=== PATIENT | female | born 1965 | race African-American/Black ===

== ENCOUNTER 2018-02-15 20:32 | Emergency (ER) | payer BC, MEDICARE, SELFPAY ==
[2018-02-15] MEDS ORDERED: Ketorolac Tromethamine 30 MG/ML VIAL ONE (21:51)
[2018-02-15] MEDS ORDERED: Dexamethasone 4 mg/ml Vial ONE (21:51)
--- NOTE | 2018-02-15 21:59 | RAD ---
TWO VIEW CHEST SERIES: 02/15/18 COMPARISON: 07/21/17 CLINICAL HISTORY: Cough. FINDINGS: There is slight patchy density at the left lower chest adjacent to the left heart border which may re late to pericardial fat pad. Otherwise no evidence of consolidation, effusion or pneumothorax. The ca rdiac silhouette is within normal limits in size. IMPRESSION: No definite acute process. POS: [facility]
== END 2018-02-15 23:02 | disposition home or self-care (01) ==
LOC: ERS 20:32
DX: J20.9 Acute bronchitis, unspecified (principal); J45.909 Unspecified asthma, uncomplicated; D50.0 Iron deficiency anemia secondary to blood loss (chronic); I10 Essential (primary) hypertension; B20 Human immunodeficiency virus [HIV] disease
CPT/HCPCS: 71046; 94640; 96372; J1100; J1885; J7620

== ENCOUNTER 2018-08-08 16:03 | Emergency (ER) | payer MEDICARE, BC ==
[2018-08-08 16:48] LABS: #Basophils 0.1 thou/uL (0.0-0.2); #Eosinphils 0.2 thou/uL (0.0-0.7); #Lymphocytes 2.6 thou/uL (1.20-3.40); #Monocytes 0.5 thou/uL (0.11-0.59); %Basophils 0.8 % (0.0-1.0); %Eosinophils 2.6 % (0.0-10.0); %Lymphocytes 35.4 % (21.0-51.0); %Monocytes 6.7 % (0.0-10.0); %Neutrophils 54.5 % (42.0-75.0); Hemoglobin 11.8 g/dL (12.0-16.0); Mean Corpuscular Hemoglobin 32.4 pg (27.0-31.0); Mean Corpuscular Volume 92.4 fL (78.0-98.0); Mean Platelet Volume 7.2 fL (7.4-10.4); Platelet Count 278 thou/uL (130-400); RBC Distribution Width 12.5 % (11.5-14.5); Red Blood Cell (RBC) Count 3.65 mill/uL (4.20-5.40); White Blood Cell (WBC) Count 7.3 thou/uL (4.8-10.8)
[2018-08-08] MEDS ORDERED: Metoclopramide HCl 10 MG/2 ML VIAL ONE (17:02)
[2018-08-08] MEDS ORDERED: Promethazine HCl 25 MG/ML VIAL ONE (17:03)
[2018-08-08 17:10] LABS: ALT (SGPT) 20 U/L (8-55); AST (SGOT) 18 U/L (5-34); Albumin 4.4 g/dL (3.5-5.0); Alkaline Phosphatase 87 U/L (40-150); Anion Gap 12 mmol/L (10-20); BUN (Urea Nitrogen) 20 mg/dL (9.8-20.1); Bilirubin, Total 0.3 mg/dL (0.2-1.2); CRP (Inflammatory) 1.65 mg/dL (= or < 0.5); Calc. Creatinine Clearance 0 mL/min (70-130); Calcium 10.1 mg/dL (7.8-10.44); Carbon Dioxide 27 mmol/L (22-29); Chloride 107 mmol/L (98-107); Estimated GFR-MDRD 44; Glucose 113 mg/dL (70-105); Protein, Total 7.4 g/dL (6.0-8.3); Sodium 143 mmol/L (136-145)
[2018-08-08 17:13] LABS: Potassium 2.8 mmol/L (3.5-5.1)
[2018-08-08] MEDS ORDERED: diphenhydrAMINE 50 MG/ML VIAL IVP SCH (17:30)
[2018-08-08 17:33] LABS: Bilirubin Negative (Negative); Blood, Urine Negative (Negative); Clarity CLEAR (Clear); Glucose, Urine (Dipstick) Negative (Negative); Leukocyte Negative (Negative); Nitrite Negative (Negative); Protein, Urine (Dipstick) Negative (Neg-Trace); Specific Gravity, Urine 1.015 (1.002-1.036)
[2018-08-08] MEDS ORDERED: Pot Chloride/Pot Bicarb/Cit Ac 25 mEq Effervescent Tablet ONE (18:40)
--- NOTE | 2018-08-08 18:50 | CT ---
HEAD CT WITHOUT CONTRAST: Date: 08/08/18 HISTORY: Headache. COMPARISON: 07/21/17. FINDINGS: No parenchymal hemorrhage. No extra-axial hematoma. No midline shift. Basilar cisterns are patent. Br ain volume, age-appropriate. Questionable hypodensity in the right frontal subcortical white matter. Nonemergent MRI is recommended. Calvarium is intact. Adequate aeration of the mastoid air cells. Ther e is mucosal thickening of the visualized ethmoid air cells. There does appear to be suggestion of pr evious sinonasal surgery with bilateral partial ethmoidectomies, incompletely evaluated. IMPRESSION: Hypodensities in the right frontal subcortical white matter, nonspecific. Nonemergent MRI is recommen ded. POS: [facility]
== END 2018-08-08 20:42 | disposition home or self-care (01) ==
LOC: ERS 16:03
DX: R51 Headache (principal); E87.6 Hypokalemia; J45.909 Unspecified asthma, uncomplicated; Z21 Asymptomatic human immunodeficiency virus [HIV] infection status; I10 Essential (primary) hypertension; Z79.899 Other long term (current) drug therapy
CPT/HCPCS: 36415; 70450; 80053; 81003; 85025; 85652; 86140; 96361; 96374; 96375; J1200; J2550; J2765

== ENCOUNTER 2018-11-05 17:25 | Emergency (ER) | payer BC, MEDICARE, MEDICAID ==
[2018-11-05] MEDS ORDERED: Metoclopramide HCl 10 MG TAB ONE (19:53)
[2018-11-05] MEDS ORDERED: Ibuprofen 200 MG TAB ONE (19:53)
== END 2018-11-05 21:13 | disposition home or self-care (01) ==
LOC: ERS 17:25
DX: R51 Headache (principal); J45.909 Unspecified asthma, uncomplicated; D50.9 Iron deficiency anemia, unspecified; B20 Human immunodeficiency virus [HIV] disease; I10 Essential (primary) hypertension; Z79.899 Other long term (current) drug therapy; Z79.51 Long term (current) use of inhaled steroids
CPT/HCPCS: 99283

== ENCOUNTER 2018-11-07 11:42 | Emergency (ER) | payer BC, MEDICARE, MEDICAID ==
[2018-11-07] MEDS ORDERED: diphenhydrAMINE 50 MG/ML VIAL ONE (12:03)
[2018-11-07] MEDS ORDERED: Metoclopramide HCl 10 MG/2 ML VIAL ONE (12:03)
[2018-11-07 12:23] LABS: #Eosinphils 0.1 thou/uL (0.0-0.7); #Lymphocytes 2.7 thou/uL (1.20-3.40); #Monocytes 0.4 thou/uL (0.11-0.59); #Neutrophils 2.8 thou/uL (1.40-6.50); %Basophils 0.8 % (0.0-1.0); %Eosinophils 2.1 % (0.0-10.0); %Monocytes 6.6 % (0.0-10.0); %Neutrophils 46.6 % (42.0-75.0); Mean Corpuscular HGB CONC 35.7 g/dL (32.0-36.0); Mean Corpuscular Hemoglobin 32.7 pg (27.0-31.0); Mean Corpuscular Volume 91.6 fL (78.0-98.0); Mean Platelet Volume 7.8 fL (7.4-10.4); Platelet Count 256 thou/uL (130-400); RBC Distribution Width 12.5 % (11.5-14.5); Red Blood Cell (RBC) Count 3.69 mill/uL (4.20-5.40); White Blood Cell (WBC) Count 6.1 thou/uL (4.8-10.8)
[2018-11-07] MEDS ORDERED: Ketorolac Tromethamine 30 MG/ML VIAL ONE (13:23)
[2018-11-07] MEDS ORDERED: methylPREDNISolone Sod Succ/PF 125 MG/2 ML VIAL ONE (13:23)
--- NOTE | 2018-11-07 13:23 | CT ---
NONCONTRAST CT HEAD: DATE: 11/07/2018. HISTORY: Headache. COMPARISON: 08/08/2018. FINDINGS: Low-density areas within the right frontal subcortical and periventricular white matter are again see n which are nonspecific but likely related to chronic small-vessel ischemic changes. There is no marta dence of an acute cortical infarction, hemorrhage, mass effect, or midline shift. The ventricular sy stem is normal in size, shape, and position. There is minimal mucosal thickening seen in the ethmoidal air cells bilaterally similar to the prior study and, again, there are findings suggestive of surgery involving the sinuses with probable ethmoi dectomy. There has been no interval change from the prior exam. IMPRESSION: 1. No acute intracranial abnormality is demonstrated. 2. Stable hypodense areas within the right frontal subcortical and periventricular white matter unch anged from the prior study and may be related to chronic small-vessel ischemic changes. A similar fi nding was seen on the study on 07/21/2017; however, this is overall nonspecific. POS: [facility]
[2018-11-07] MEDS ORDERED: Magnesium 2 GM/50 ML 2 GM in Premix Bag 1 BAG IVPB SCH (13:45)
== END 2018-11-07 15:06 | disposition home or self-care (01) ==
LOC: ERS 11:42
DX: R51 Headache (principal); J45.909 Unspecified asthma, uncomplicated; Z21 Asymptomatic human immunodeficiency virus [HIV] infection status; I10 Essential (primary) hypertension; Z79.899 Other long term (current) drug therapy
CPT/HCPCS: 70450; 85025; 96365; 96366; 96367; 96375; J1200; J1885; J2765; J2930

== ENCOUNTER 2019-04-30 08:11 | Outpatient (CLI) | payer BC, MEDICAID ==
--- NOTE | 2019-04-30 08:53 | MMO ---
Bilateral MAMMO Bilat Diag [facility]DI+[facility]I. CLINICAL HISTORY: Patient is 53 years old and is seen for diagnostic exam. The patient has the following family history of breast cancer: 4 maternal aunts and cousin female. The patient has no personal history of cancer. VIEWS: The views performed were: bilateral craniocaudal with tomosynthesis; bilateral mediolateral oblique with tomosynthesis; and bilateral mediolateral with tomosynthesis. FILMS COMPARED: The present examination has been compared to prior imaging studies performed at [facility] on 04/13/2011 and 04/30/2019. MAMMOGRAM FINDINGS: The breasts are heterogeneously dense, which could obscure a lesion on mammography. Benign calcifications are noted bilaterally. US of regions of pain/tenderness bilaterally shows no abnormality. There are no suspicious masses, suspicious calcifications, or new areas of architectural distortion. IMPRESSION: THERE IS NO MAMMOGRAPHIC EVIDENCE OF MALIGNANCY. A ROUTINE FOLLOW-UP MAMMOGRAM IN 1 YEAR IS RECOMMENDED. THE RESULTS OF THIS EXAM WERE SENT TO THE PATIENT. ACR BI-RADS Category 2 - Benign finding MAMMOGRAPHY NOTE: 1. A negative mammogram report should not delay a biopsy if a dominant of clinically suspicious mass is present. 2. Approximately 10% to 15% of breast cancers are not detected by mammography. 3. Adenosis and dense breasts may obscure an underlying neoplasm.
--- NOTE | 2019-04-30 11:12 | ULT ---
RIGHT BREAST ULTRASOUND LEFT BREAST ULTRASOUND: HISTORY: Bilateral breast tenderness and pain. FINDINGS: Correlation is made with the mammograms of same date. FINDINGS: Sonographic evaluation of the regions of pain/tenderness in the 12 and 6 o'clock positions of both br easts demonstrate no abnormality. IMPRESSION: BIRADS category 2 - benign findings. Return to annual mammographic screening. POS: OFF
== END 2019-04-30 08:12 | disposition home or self-care (01) ==
LOC: BICMAMMO 08:11
PROVIDERS: ATTEND Internal Medicine Infectious Disease
DX: N63.0 Unspecified lump in unspecified breast (principal); Z80.3 Family history of malignant neoplasm of breast
CPT/HCPCS: 77066; G0279

== ENCOUNTER 2019-11-20 14:40 | Outpatient (CLI) | payer MEDICARE, BC, MEDICAID ==
--- NOTE | 2019-11-20 15:16 | RAD ---
EXAM: 2 views of the lumbosacral spine HISTORY: Low back pain for one year COMPARISON: 03/04/2014 FINDINGS: 2 views of the lumbosacral spine shows normal height and alignment of the vertebral bodies and intervertebral discs without fracture or subluxation. Small osteophytes are seen throughout the lumbar spine. The sacroiliac joints are unremarkable. IMPRESSION: Mild degenerative changes throughout the lumbar spine without acute osseous abnormality.
--- NOTE | 2019-11-20 15:17 | RAD ---
EXAM: 3 views of the sacrum/coccyx HISTORY: Sacral/coccygeal pain for one year COMPARISON: None FINDINGS: 3 views of the sacrum/coccyx shows no evidence of displaced sacral or coccygeal fracture. T he sacral alae are symmetric. The sacroiliac joints and pubic symphysis are unremarkable. IMPRESSION: No evidence of sacral or coccygeal fracture.
== END 2019-11-20 14:41 | disposition home or self-care (01) ==
LOC: BICRAD 14:40
PROVIDERS: ATTEND Internal Medicine Infectious Disease
DX: M54.5 Low back pain (principal); M47.816 Spondylosis without myelopathy or radiculopathy, lumbar region
CPT/HCPCS: 72100; 72220

== ENCOUNTER 2020-01-24 11:43 | Outpatient (CLI) | payer BC, MEDICAID ==
--- NOTE | 2020-01-24 12:04 | RAD ---
XR Foot Lt 3 View STANDARD INDICATION: Left foot pain COMPARISON: None. FINDINGS: Bones: No acute fracture identified. There is mild enthesopathic change off the plantar posterior susan caneus. Assess or ossicle seen adjacent to the cuboid. Joints: There is [id number] great toe MTP osteoarthrosis. There is mild hallux valgus deformity of the first ray. There is mild-sized bunion overlying the great toe metatarsal head. There is scattered IP osteoarthrosis. Lisfranc alignment: Lisfranc alignment appears within normal limits. Soft tissues: There is nonspecific soft tissue swelling involving the left foot. IMPRESSION: No acute osseous abnormality.
== END 2020-01-24 11:44 | disposition home or self-care (01) ==
LOC: BICRAD 11:43
PROVIDERS: ATTEND Podiatrist
DX: M79.672 Pain in left foot (principal); M10.00 Idiopathic gout, unspecified site

== ENCOUNTER 2020-07-14 16:07 | Emergency (ER) | payer MEDICARE, BC, MEDICAID ==
--- NOTE | 2020-07-14 17:36 | RAD ---
PORTABLE CHEST: History: Asthmatic exacerbation Comparison: 07-21-17 FINDINGS: Heart size appears borderline in size. Mediastinal structures are unremarkable. The lungs are clear o f infiltrates. IMPRESSION: Borderline heart size. POS: OFF
== END 2020-07-14 18:50 | disposition home or self-care (01) ==
LOC: ERS 16:07
DX: J45.901 Unspecified asthma with (acute) exacerbation (principal); J32.9 Chronic sinusitis, unspecified; D50.9 Iron deficiency anemia, unspecified; I10 Essential (primary) hypertension; B20 Human immunodeficiency virus [HIV] disease; Z79.899 Other long term (current) drug therapy
CPT/HCPCS: 71045

== ENCOUNTER 2020-09-14 19:26 | Emergency (ER) | payer BC, MEDICAID ==
[2020-09-14] MEDS ORDERED: Ketorolac Tromethamine 30 MG/ML VIAL ONE (20:12)
[2020-09-14 20:33] LABS: #Basophils 0.1 thou/uL (0.0-0.2); #Eosinphils 0.3 thou/uL (0.0-0.7); #Lymphocytes 3.2 thou/uL (1.20-3.40); #Monocytes 0.7 thou/uL (0.11-0.59); #Neutrophils 4.6 thou/uL (1.40-6.50); %Basophils 0.6 % (0.0-1.0); %Eosinophils 3.2 % (0.0-10.0); %Lymphocytes 35.8 % (21.0-51.0); %Monocytes 8.2 % (0.0-10.0); %Neutrophils 52.2 % (42.0-75.0); Hemoglobin 12.3 g/dL (12.0-16.0); Mean Corpuscular HGB CONC 35.6 g/dL (32.0-36.0); Mean Corpuscular Hemoglobin 32.2 pg (27.0-31.0); Mean Corpuscular Volume 90.4 fL (78.0-98.0); Mean Platelet Volume 7.8 fL (7.4-10.4); Platelet Count 300 thou/uL (130-400); RBC Distribution Width 12.7 % (11.5-14.5); Red Blood Cell (RBC) Count 3.81 mill/uL (4.20-5.40); White Blood Cell (WBC) Count 8.8 thou/uL (4.8-10.8)
[2020-09-14 20:42] LABS: Bilirubin Negative (Negative); Blood, Urine Negative (Negative); Clarity Clear (Clear); Glucose, Urine (Dipstick) Normal (Negative); Ketone, Urine Negative (Negative); Leukocyte Negative Leu/uL (Negative); Nitrite Negative (Negative); Protein, Urine (Dipstick) Negative (Neg-Trace); Specific Gravity, Urine 1.008 (1.002-1.036); Urobilinogen Normal mg/dL (Less than 2)
[2020-09-14 20:53] LABS: ALT (SGPT) 29 U/L (8-55); AST (SGOT) 26 U/L (5-34); Albumin 4.5 g/dL (3.5-5.0); Alkaline Phosphatase 99 U/L (40-110); Anion Gap 16 mmol/L (10-20); BUN (Urea Nitrogen) 19 mg/dL (9.8-20.1); Bilirubin, Total 0.2 mg/dL (0.2-1.2); Calc. Creatinine Clearance 0 mL/min (70-130); Calcium 10.4 mg/dL (7.8-10.44); Carbon Dioxide 28 mmol/L (22-29); Chloride 104 mmol/L (98-107); Estimated GFR-MDRD 52; Glucose 113 mg/dL (70-105); Protein, Total 7.5 g/dL (6.0-8.3); Sodium 145 mmol/L (136-145)
[2020-09-14 21:01] LABS: Potassium 2.6 mmol/L (3.5-5.1)
[2020-09-14] MEDS ORDERED: diphenhydrAMINE 50 MG/ML VIAL ONE (21:51)
[2020-09-14] MEDS ORDERED: Promethazine HCl 25 MG/ML VIAL ONE (21:51)
[2020-09-14] MEDS ORDERED: Potassium Chloride 20 MEQ TAB ONE (21:51)
[2020-09-14] MEDS ORDERED: Metoclopramide HCl 10 MG/2 ML VIAL ONE (21:54)
== END 2020-09-14 22:39 | disposition home or self-care (01) ==
LOC: ERS 19:26
DX: G43.909 Migraine, unspecified, not intractable, without status migrainosus (principal); E87.6 Hypokalemia; Z79.899 Other long term (current) drug therapy; J45.909 Unspecified asthma, uncomplicated; B20 Human immunodeficiency virus [HIV] disease; I10 Essential (primary) hypertension
CPT/HCPCS: 36415; 80053; 81003; 85025; 93005; 96374; J1200; J1885; J2550; J2765

== ENCOUNTER 2020-11-16 07:53 | Emergency (ER) | payer BC, MEDICARE, MEDICAID ==
[2020-11-16] MEDS ORDERED: Ketorolac Tromethamine 30 MG/ML VIAL ONE (08:31)
[2020-11-16 08:57] LABS: ALT (SGPT) 33 U/L (8-55); AST (SGOT) 25 U/L (5-34); Albumin 4.4 g/dL (3.5-5.0); Alkaline Phosphatase 81 U/L (40-110); Anion Gap 14 mmol/L (10-20); BUN (Urea Nitrogen) 11 mg/dL (9.8-20.1); Bilirubin, Total 0.3 mg/dL (0.2-1.2); Calc. Creatinine Clearance 0 mL/min (70-130); Calcium 9.4 mg/dL (7.8-10.44); Carbon Dioxide 26 mmol/L (22-29); Chloride 105 mmol/L (98-107); Glucose 122 mg/dL (70-105); Protein, Total 7.4 g/dL (6.0-8.3); Sodium 142 mmol/L (136-145)
[2020-11-16 09:00] LABS: #Eosinphils 0.1 thou/uL (0.0-0.7); #Lymphocytes 1.2 thou/uL (1.20-3.40); #Monocytes 0.5 thou/uL (0.11-0.59); %Basophils 0.5 % (0.0-1.0); %Eosinophils 1.2 % (0.0-10.0); %Lymphocytes 21.2 % (21.0-51.0); %Monocytes 8.6 % (0.0-10.0); %Neutrophils 68.4 % (42.0-75.0); Hemoglobin 12.2 g/dL (12.0-16.0); Mean Corpuscular HGB CONC 34.9 g/dL (32.0-36.0); Mean Corpuscular Hemoglobin 31.3 pg (27.0-31.0); Mean Corpuscular Volume 89.9 fL (78.0-98.0); Platelet Count 228 thou/uL (130-400); RBC Distribution Width 12.4 % (11.5-14.5); White Blood Cell (WBC) Count 5.8 thou/uL (4.8-10.8)
[2020-11-16] MEDS ORDERED: Potassium Chloride 20 MEQ TAB ONE ×2 (09:35→10:35)
[2020-11-16 09:54] LABS: Bilirubin Negative (Negative); Blood, Urine Negative (Negative); Clarity Clear (Clear); Glucose, Urine (Dipstick) Normal (Negative); Ketone, Urine Negative (Negative); Leukocyte Negative Leu/uL (Negative); Nitrite Negative (Negative); Protein, Urine (Dipstick) 20 mg/dL (Neg-Trace); Specific Gravity, Urine 1.018 (1.002-1.036); Urobilinogen Normal mg/dL (Less than 2); pH, Urine 7.5 (5.0-9.0)
[2020-11-16] MEDS ORDERED: predniSONE 20 MG TAB ONE (10:35)
[2020-11-16] MEDS ORDERED: Potassium Bicarbonate/Cit Ac 20 MEQ TAB PO SCH (11:00)
[2020-11-16] MEDS ORDERED: Potassium Chloride 20 MEQ TAB PO SCH (11:00)
== END 2020-11-16 10:45 | disposition home or self-care (01) ==
LOC: ERS 07:53
DX: G89.29 Other chronic pain (principal); M54.5 Low back pain; E87.6 Hypokalemia; Z79.899 Other long term (current) drug therapy; J45.909 Unspecified asthma, uncomplicated; D64.9 Anemia, unspecified; B20 Human immunodeficiency virus [HIV] disease; I10 Essential (primary) hypertension
CPT/HCPCS: 36415; 80053; 81003; 85025; 96372; 99283; J1885; J7512

== ENCOUNTER 2020-11-20 05:13 | Emergency (ER) | payer BC, MEDICARE, MEDICAID ==
[2020-11-20 06:38] LABS: #Basophils 0.1 thou/uL (0.0-0.2); #Lymphocytes 2.6 thou/uL (1.20-3.40); #Monocytes 0.5 thou/uL (0.11-0.59); #Neutrophils 5.5 thou/uL (1.40-6.50); %Basophils 0.6 % (0.0-1.0); %Eosinophils 0.2 % (0.0-10.0); %Lymphocytes 29.9 % (21.0-51.0); %Monocytes 5.7 % (0.0-10.0); %Neutrophils 63.5 % (42.0-75.0); Hemoglobin 11.7 g/dL (12.0-16.0); Mean Corpuscular HGB CONC 34.3 g/dL (32.0-36.0); Mean Corpuscular Hemoglobin 30.1 pg (27.0-31.0); Mean Corpuscular Volume 87.8 fL (78.0-98.0); Mean Platelet Volume 7.8 fL (7.4-10.4); Platelet Count 232 thou/uL (130-400); RBC Distribution Width 12.1 % (11.5-14.5); White Blood Cell (WBC) Count 8.6 thou/uL (4.8-10.8)
--- NOTE | 2020-11-20 08:22 | RAD ---
Exam: Chest one view HISTORY:Cough and fever Comparison: 07/14/2020 FINDINGS: Cardiac silhouette: Normal Aorta: Unremarkable Pulmonary vessels: Normal Costophrenic angles: Clear LUNGS: Right midlung infiltrate Pneumothorax: None Osseous abnormalities: None IMPRESSION: Right lung infiltrate. Pneumonia.
== END 2020-11-20 07:05 | disposition home or self-care (01) ==
LOC: ERS 05:13
DX: U07.1 COVID-19 (principal); I10 Essential (primary) hypertension; B20 Human immunodeficiency virus [HIV] disease; Z79.899 Other long term (current) drug therapy
CPT/HCPCS: 36415; 71045; 85025

== ENCOUNTER 2020-11-22 17:18 | Inpatient (IN) | payer MEDICARE, MEDICAID ==
[2020-11-22] MEDS ORDERED: Acetaminophen 500 MG TAB ONE (17:54)
[2020-11-22] MEDS ORDERED: Ondansetron PF 4 MG/2 ML Vial ONE (17:54)
--- NOTE | 2020-11-22 17:58 | RAD ---
XR Chest 1 View Portable HISTORY: Cough. Covid 19 positive COMPARISON: 11/20/2020 FINDINGS: The heart size normal. Interval worsening of patchy infiltrates in the lower lung lyons is seen since the previous exam. No pneumothoraces or pleural effusions are seen. IMPRESSION: Covid 19 pneumonia.
[2020-11-22 18:08] LABS: #Lymphocytes 1.6 thou/uL (1.20-3.40); #Monocytes 0.1 thou/uL (0.11-0.59); #Neutrophils 5.6 thou/uL (1.40-6.50); %Basophils 0.4 % (0.0-1.0); %Eosinophils 0.2 % (0.0-10.0); %Lymphocytes 21.9 % (21.0-51.0); %Monocytes 1.9 % (0.0-10.0); %Neutrophils 75.6 % (42.0-75.0); Hemoglobin 12.4 g/dL (12.0-16.0); Mean Corpuscular Hemoglobin 30.4 pg (27.0-31.0); Mean Platelet Volume 7.7 fL (7.4-10.4); Platelet Count 210 thou/uL (130-400); RBC Distribution Width 12.2 % (11.5-14.5); Red Blood Cell (RBC) Count 4.07 mill/uL (4.20-5.40); White Blood Cell (WBC) Count 7.4 thou/uL (4.8-10.8)
[2020-11-22 18:32] LABS: ALT (SGPT) 37 U/L (8-55); AST (SGOT) 28 U/L (5-34); Alkaline Phosphatase 85 U/L (40-110); Anion Gap 15 mmol/L (10-20); BUN (Urea Nitrogen) 13 mg/dL (9.8-20.1); Bilirubin, Total 0.3 mg/dL (0.2-1.2); Calc. Creatinine Clearance 0 mL/min (70-130); Calcium 8.9 mg/dL (7.8-10.44); Carbon Dioxide 28 mmol/L (22-29); Chloride 98 mmol/L (98-107); Globulin 3.2 g/dL (2.4-3.5); Glucose 123 mg/dL (70-105); Protein, Total 7.2 g/dL (6.0-8.3); Sodium 138 mmol/L (136-145)
[2020-11-22 18:38] LABS: Potassium 2.6 mmol/L (3.5-5.1)
[2020-11-22] MEDS ORDERED: Potassium Chloride 20 MEQ TAB ONE (18:48)
[2020-11-22] MEDS ORDERED: Potassium Chloride 20 MEQ/100 ML PREMIX BAG ONE (18:48)
[2020-11-23 07:53] VITALS: BMI 30.5
[2020-11-23] MEDS ORDERED: Acetaminophen 325 MG TAB PO PRN ×2 (08:15→10:36)
[2020-11-23] MEDS ORDERED: Ondansetron PF 4 MG/2 ML Vial IVP PRN ×2 (08:15→10:37)
[2020-11-23] MEDS ORDERED: FLU VACC QS2020-21(6MOS UP)/PF 60 MCG/0.5 ML SYRINGE IM ONE (08:15)
[2020-11-23] MEDS ORDERED: Prevnar 13-Val Conj/PF 0.5 ML SYRINGE IM ONE (08:15)
[2020-11-23] MEDS ORDERED: Ondansetron ODT 4 MG TAB SL PRN (08:15)
[2020-11-23] MEDS ORDERED: cefTRIAXone\\ROCEPHIN 1 GM in Sodium Chloride 0.9% 100 ML IVPB SCH ×2 (08:45→11:00)
[2020-11-23] MEDS ORDERED: REMDESIVIR (EUA) 200 MG in Sodium Chloride 0.9% 250 ML 210 ML IV SCH (08:45)
[2020-11-23] MEDS ORDERED: Dexamethasone 10 MG/ML VIAL SLOW IVP SCH (09:00)
[2020-11-23] MEDS ORDERED: Dexamethasone 4 mg/ml Vial SLOW IVP SCH (10:45)
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
[2020-11-23] MEDS ORDERED: Azithromycin 250 MG in Sodium Chloride 0.9% 250 ML 250 ML IVPB SCH (12:00)
[2020-11-23 14:43] LABS: #Lymphocytes 1.2 thou/uL (1.20-3.40); #Monocytes 0.1 thou/uL (0.11-0.59); #Neutrophils 6.6 thou/uL (1.40-6.50); %Basophils 0.4 % (0.0-1.0); %Eosinophils 0.2 % (0.0-10.0); %Lymphocytes 15.5 % (21.0-51.0); %Monocytes 1.3 % (0.0-10.0); %Neutrophils 82.7 % (42.0-75.0); Hemoglobin 12.3 g/dL (12.0-16.0); Mean Corpuscular HGB CONC 35.2 g/dL (32.0-36.0); Mean Corpuscular Hemoglobin 31.2 pg (27.0-31.0); Mean Corpuscular Volume 88.6 fL (78.0-98.0); Mean Platelet Volume 7.4 fL (7.4-10.4); Platelet Count 204 thou/uL (130-400); RBC Distribution Width 12.2 % (11.5-14.5); Red Blood Cell (RBC) Count 3.96 mill/uL (4.20-5.40); White Blood Cell (WBC) Count 7.9 thou/uL (4.8-10.8)
[2020-11-23 15:05] LABS: Anion Gap 13 mmol/L (10-20); BUN (Urea Nitrogen) 12 mg/dL (9.8-20.1); Calc. Creatinine Clearance 73 mL/min (70-130); Calcium 8.6 mg/dL (7.8-10.44); Carbon Dioxide 24 mmol/L (22-29); Chloride 100 mmol/L (98-107); Glucose 170 mg/dL (70-105); Potassium 3.4 mmol/L (3.5-5.1); Sodium 134 mmol/L (136-145)
--- NOTE | 2020-11-23 18:59 | CON ---
DATE OF CONSULTATION: 11/23/2020 REASON FOR CONSULTATION: COVID-19 pneumonia. HISTORY OF PRESENT ILLNESS: A 55-year-old patient of mine who has a longstanding history of HIV infection, well controlled on Prezcobix and Pifeltro, who tested positive for SARS-CoV-2 on Tuesday, 7 days ago, and then started having symptoms on with temperature elevation up to 100.9 and some cough, not very frequent cough. The main reason she came is because of fever. Downstairs in the emergency room, her vital signs were fairly normal. She was saturating 98% on room air, temperature 99.2. She was admitted and placed on Decadron, Rocephin, and azithromycin. She is feeling better. In the hospital, she desaturated to 92% briefly there, but now she is 100% on room air. No headaches. No sore throat, odynophagia, or dysphagia. Not coughing much. No chest pain. No sputum production. No diarrhea. Her sense of smell kind of comes and goes. She has good appetite. No abdominal pain. No joint symptoms. No neurological symptoms. PAST MEDICAL HISTORY: Longstanding HIV infection, well controlled, suppressed viral load, CD4 is above 500; asthma; degenerative joint disease; iron deficiency; hypertension. PAST SURGICAL HISTORY: Sinus surgery, cyst removal, carpal tunnel, and hysterectomy. SOCIAL HISTORY: Used to work in 2 different jobs, which she has retired. Never smoker. FAMILY HISTORY: Type 2 diabetes. ALLERGIES: NONE. MEDICATIONS: 1. Norvasc. 2. Lisinopril/hydrochlorothiazide. 3. Albuterol. 4. Prezcobix. 5. Pifeltro. 6. Here, prednisone is listed. I am not sure she actually had been taking it or not, not clear. PHYSICAL EXAMINATION: VITAL SIGNS: Here, T-max 99.9, BP 120/70, heart rate 106, respirations 18, O2 saturation 98% on room air. She actually was 100% on room air when I saw her in the room. SKIN: Normal. No lymphadenopathy. GENERAL: She appears in no distress, speaking in full sentences. HEENT: Ocular movements are conjugate. Oral cavity is normal. LUNGS: Clear to auscultation and percussion. HEART: S1 and S2. Regular rate. No S3 or S4. ABDOMEN: Soft, not distended or tender. No ascites. No bladder distention. EXTREMITIES: No joint inflammatory activity. Moves all extremities equally. LABORATORY DATA: Sodium 134, creatinine 1.10. White cell count 7.9, hemoglobin 12, platelets 204. Two sets of blood cultures, no growth to date. Urine culture, preliminary, less than 10,000 CFUs. Chest x-ray with bilateral infiltrates, mostly in the basilar areas. ASSESSMENT: Longstanding human immunodeficiency virus infection, well controlled. Immune function is considered normal. Hypertension and mild COVID-19 manifestations with normal O2 saturations on room air without desaturation upon exercise. DISCUSSION: The patient has mild COVID-19 and she might not even need Decadron, but she is at the 7th day and has bilateral infiltrates, so I think it is worthwhile to continue it for now. Discontinue Rocephin and azithromycin. She is not eligible for remdesivir. Another option for this lady would be to keep her in the outpatient setting and treat her with monoclonals, but now that she is in the hospital, she is not eligible for it. Today is the 4th day of illness based on duration of symptoms, so if she is discharged, she may be eligible for receiving monoclonal antibody administration. She is above 55 and has risk factors. If she requires O2 supplementation in the next few days then will be eligible for Remdesivir. Job ID: [id number] [facility]
[2020-11-23] MEDS ORDERED: Melatonin 3 MG TAB PO SCH (21:00)
[2020-11-24 06:54] LABS: Anion Gap 16 mmol/L (10-20); BUN (Urea Nitrogen) 12 mg/dL (9.8-20.1); Calc. Creatinine Clearance 93 mL/min (70-130); Carbon Dioxide 19 mmol/L (22-29); Chloride 105 mmol/L (98-107); Glucose 146 mg/dL (70-105); Potassium 3.7 mmol/L (3.5-5.1); Sodium 136 mmol/L (136-145)
[2020-11-24 07:01] LABS: #Lymphocytes 1.4 thou/uL (1.20-3.40); #Monocytes 0.2 thou/uL (0.11-0.59); #Neutrophils 5.2 thou/uL (1.40-6.50); %Basophils 0.7 % (0.0-1.0); %Eosinophils 0.3 % (0.0-10.0); %Lymphocytes 20.1 % (21.0-51.0); %Monocytes 2.9 % (0.0-10.0); %Neutrophils 75.9 % (42.0-75.0); Hemoglobin 11.6 g/dL (12.0-16.0); Mean Corpuscular HGB CONC 34.2 g/dL (32.0-36.0); Mean Corpuscular Volume 87.8 fL (78.0-98.0); Mean Platelet Volume 8.3 fL (7.4-10.4); Platelet Count 250 thou/uL (130-400); RBC Distribution Width 12.3 % (11.5-14.5); Red Blood Cell (RBC) Count 3.86 mill/uL (4.20-5.40); White Blood Cell (WBC) Count 6.9 thou/uL (4.8-10.8)
[2020-11-24] MEDS ORDERED: Multivit, Therapeutic 1 TAB PO SCH (08:00)
[2020-11-24] MEDS ORDERED: REMDESIVIR (EUA) 100 MG in Sodium Chloride 0.9% 250 ML 230 ML IV SCH (08:45)
[2020-11-24] MEDS ORDERED: PREZCOBIX PO SCH (09:00)
[2020-11-24] MEDS ORDERED: Zinc Sulfate 220 MG CAP PO SCH (09:00)
[2020-11-24] MEDS ORDERED: Enoxaparin Sodium 40 MG/0.4 ML SYRINGE SC SCH (09:00)
[2020-11-24] MEDS ORDERED: [UNRECOGNIZED DRUG - OTHER] PO SCH (09:00)
[2020-11-24] MEDS ORDERED: Dexamethasone 4 mg/ml Vial SLOW IVP SCH (09:00)
[2020-11-24] MEDS ORDERED: Aspirin 325 MG TAB PO SCH (09:00)
[2020-11-24] MEDS ORDERED: Amlodipine 5 MG TAB PO SCH (09:00)
[2020-11-24] MEDS ORDERED: Lisinopril/Hydrochlorothiazide 10 mg/12.5 mg Tablet PO SCH (09:00)
--- NOTE | 2020-11-24 14:33 | PRG ---
DATE OF SERVICE: 11/24/2020 SUBJECTIVE: Feeling well, coughing a little bit intermittently, but not much. No chest pain. No dyspnea. She is saturating 97% to 100% on room air, even after effort. OBJECTIVE: LUNGS: Few crackles, inspiratory early at the bases. HEART: S1 and S2, regular rate. ABDOMEN: Soft, not distended or tender. No ascites. No bladder distention. NEURO: Nonfocal. LABORATORY DATA: White cell count 6.9, hemoglobin 11.6, platelets 250. D-dimer 0.61. Creatinine 0.86. Liver profile normal. CRP was 14.24. ASSESSMENT AND DISCUSSION: Human immunodeficiency virus, well controlled, normal immune function with moderate COVID manifestations, evidence of some element of pneumonitis, but does not desaturate even after exercise, so I think she is ready for discharge planning on Decadron to finish a 10-day course. I told her to do a phone visit with me in a week or call us if she has any deterioration in the ensuing days. She is early in the course of illness, so there is some risk going forward, but she is not eligible for remdesivir at this point, and I think she missed the dottie for the monoclonal since she did have hypoxemia and had pneumonitis on x-rays when she came in. Job ID: [id number]
[2020-11-24 16:34] VITALS: BP 143/84; TEMP 97.7
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
--- NOTE | 2020-12-13 19:06 | EKG ---
Test Reason : Blood Pressure : / mmHG Vent. Rate : 097 BPM Atrial Rate : 097 BPM P-R Int : 138 ms QRS Dur : 072 ms QT Int : 346 ms P-R-T Axes : 037 034 -51 degrees QTc Int : 439 ms Normal sinus rhythm Possible Left atrial enlargement Left ventricular hypertrophy with repolarizatin changes Abnormal ECG Confirmed by EVELYNE JACOB DO ([id number]), index editor SARAH SALOMON ([id number]) on 12/13/2020 7:05:54 PM Referred By: Confirmed By:EVELYNE JACOB DO
== END 2020-11-24 15:59 | disposition home or self-care (01) | DRG 177 ==
LOC: ERS 17:18 → ERHOLD 21:38 → T4-B 11-23 07:37 → OBSVTOIN 11-23 13:00
PROVIDERS: ADMIT Specialist; ATTEND Specialist
PROC: 8E0ZXY6 Isolation (ICD-10-PCS; principal; 2020-11-23)
PROC: XW13325 Transfusion of Convalescent Plasma (Nonautologous) into Peripheral Vein, Percutaneous Approach, New Technology Group 5 (ICD-10-PCS; 2020-11-24)
DX: U07.1 COVID-19 (principal); J12.82 Pneumonia due to coronavirus disease 2019; D50.9 Iron deficiency anemia, unspecified; I10 Essential (primary) hypertension; I25.10 Atherosclerotic heart disease of native coronary artery without angina pectoris; G47.00 Insomnia, unspecified; E78.5 Hyperlipidemia, unspecified; E87.6 Hypokalemia; Z90.710 Acquired absence of both cervix and uterus; Z95.1 Presence of aortocoronary bypass graft; Z79.899 Other long term (current) drug therapy; Z79.51 Long term (current) use of inhaled steroids; R09.02 Hypoxemia; Z79.82 Long term (current) use of aspirin; J45.909 Unspecified asthma, uncomplicated; Z21 Asymptomatic human immunodeficiency virus [HIV] infection status
CPT/HCPCS: 36415; 36430; 71045; 80048; 80053; 83605; 84484; 85025; 85379; 86140; 86850; 86900; 86901; 87040; 87086; 90471; 90662; 90670; 93005; 96365; 96366; 96372; 96375; G0008; G0009; G0378; J0456; J0696; J1100; J1650; J2405; J3480; J3490; J7050; P9017

== ENCOUNTER 2021-01-07 02:21 | Emergency (ER) | payer BC, MEDICAID ==
[2021-01-07 03:15] LABS: #Basophils 0.1 thou/uL (0.0-0.2); #Eosinphils 0.1 thou/uL (0.0-0.7); #Lymphocytes 1.3 thou/uL (1.20-3.40); #Monocytes 0.4 thou/uL (0.11-0.59); #Neutrophils 7.2 thou/uL (1.40-6.50); %Basophils 0.7 % (0.0-1.0); %Eosinophils 1.1 % (0.0-10.0); %Lymphocytes 14.2 % (21.0-51.0); %Monocytes 4.8 % (0.0-10.0); %Neutrophils 79.3 % (42.0-75.0); Hemoglobin 10.6 g/dL (12.0-16.0); Mean Corpuscular Hemoglobin 31.7 pg (27.0-31.0); Mean Corpuscular Volume 93.1 fL (78.0-98.0); Mean Platelet Volume 7.5 fL (7.4-10.4); Platelet Count 246 thou/uL (130-400); RBC Distribution Width 14.2 % (11.5-14.5); Red Blood Cell (RBC) Count 3.34 mill/uL (4.20-5.40); White Blood Cell (WBC) Count 9.1 thou/uL (4.8-10.8)
== END 2021-01-07 03:35 | disposition home or self-care (01) ==
LOC: ERS 02:21
DX: R50.9 Fever, unspecified (principal); I10 Essential (primary) hypertension; E11.9 Type 2 diabetes mellitus without complications; Z21 Asymptomatic human immunodeficiency virus [HIV] infection status; J45.909 Unspecified asthma, uncomplicated; D50.9 Iron deficiency anemia, unspecified; Z79.51 Long term (current) use of inhaled steroids; Z79.899 Other long term (current) drug therapy
CPT/HCPCS: 36415; 85025; 99283

== ENCOUNTER 2021-05-03 12:57 | Emergency (ER) | payer SELFPAY ==
[2021-05-03] MEDS ORDERED: Morphine 4 MG/ML VIAL ONE (13:33)
[2021-05-03] MEDS ORDERED: Ketorolac Tromethamine 30 MG/ML VIAL ONE (13:33)
[2021-05-03 14:19] LABS: #Eosinphils 0.1 thou/uL (0.0-0.7); #Lymphocytes 2.4 thou/uL (1.20-3.40); #Monocytes 0.5 thou/uL (0.11-0.59); #Neutrophils 4.4 thou/uL (1.40-6.50); %Basophils 0.6 % (0.0-1.0); %Eosinophils 1.4 % (0.0-10.0); %Lymphocytes 32.5 % (21.0-51.0); %Monocytes 6.6 % (0.0-10.0); %Neutrophils 58.9 % (42.0-75.0); Hemoglobin 12.2 g/dL (12.0-16.0); Mean Corpuscular HGB CONC 35.6 g/dL (32.0-36.0); Mean Corpuscular Hemoglobin 31.2 pg (27.0-31.0); Mean Corpuscular Volume 87.7 fL (78.0-98.0); Mean Platelet Volume 7.7 fL (7.4-10.4); Platelet Count 268 thou/uL (130-400); RBC Distribution Width 13.1 % (11.5-14.5); White Blood Cell (WBC) Count 7.4 thou/uL (4.8-10.8)
[2021-05-03 14:40] LABS: ALT (SGPT) 18 U/L (8-55); AST (SGOT) 15 U/L (5-34); Albumin 4.6 g/dL (3.5-5.0); Alkaline Phosphatase 108 U/L (40-110); Anion Gap 13 mmol/L (10-20); BUN (Urea Nitrogen) 13 mg/dL (9.8-20.1); Bilirubin, Total 0.5 mg/dL (0.2-1.2); Calc. Creatinine Clearance 0 mL/min (70-130); Calcium 9.8 mg/dL (7.8-10.44); Carbon Dioxide 26 mmol/L (22-29); Chloride 106 mmol/L (98-107); Globulin 2.7 g/dL (2.4-3.5); Glucose 94 mg/dL (70-105); Lipase 13 U/L (8-78); Protein, Total 7.3 g/dL (6.0-8.3); Sodium 142 mmol/L (136-145)
[2021-05-03 14:50] LABS: Potassium 2.8 mmol/L (3.5-5.1)
[2021-05-03] MEDS ORDERED: Potassium Chloride 20 MEQ TAB ONE (14:51)
[2021-05-03 17:03] LABS: Bilirubin Negative (Negative); Blood, Urine Negative (Negative); Clarity Clear (Clear); Glucose, Urine (Dipstick) Normal (Negative); Ketone, Urine Negative (Negative); Leukocyte Negative Leu/uL (Negative); Nitrite Negative (Negative); Protein, Urine (Dipstick) Negative (Neg-Trace); Specific Gravity, Urine 1.015 (1.002-1.036); Urobilinogen Normal mg/dL (Less than 2)
== END 2021-05-03 17:20 | disposition home or self-care (01) ==
LOC: ERS 12:57
DX: J45.901 Unspecified asthma with (acute) exacerbation (principal); Z21 Asymptomatic human immunodeficiency virus [HIV] infection status; I10 Essential (primary) hypertension; E11.9 Type 2 diabetes mellitus without complications; Z79.899 Other long term (current) drug therapy
CPT/HCPCS: 36415; 71045; 80053; 81003; 83690; 83735; 83880; 84484; 85025; 85379; 93005; 94640; 96374; 96375; J1885; J2270; J7620

== ENCOUNTER 2021-08-30 10:59 | Emergency (ER) | payer MEDICARE, MEDICAID ==
[~2021-08-30 10:59] MED LIST: Iopamidol-370 76% 500 ML 1 ML ONE
[2021-08-30 11:24] LABS: #Eosinphils 0.3 thou/uL (0.0-0.7); #Lymphocytes 1.5 thou/uL (1.20-3.40); #Monocytes 0.4 thou/uL (0.11-0.59); #Neutrophils 4.5 thou/uL (1.40-6.50); %Basophils 0.4 % (0.0-1.0); %Eosinophils 5.1 % (0.0-10.0); %Lymphocytes 22.3 % (21.0-51.0); %Monocytes 6.3 % (0.0-10.0); %Neutrophils 65.9 % (42.0-75.0); Hemoglobin 11.9 g/dL (12.0-16.0); Mean Corpuscular HGB CONC 35.1 g/dL (32.0-36.0); Mean Corpuscular Hemoglobin 31.4 pg (27.0-31.0); Mean Corpuscular Volume 89.5 fL (78.0-98.0); Mean Platelet Volume 7.3 fL (7.4-10.4); Platelet Count 265 thou/uL (130-400); RBC Distribution Width 12.3 % (11.5-14.5); Red Blood Cell (RBC) Count 3.78 mill/uL (4.20-5.40); White Blood Cell (WBC) Count 6.8 thou/uL (4.8-10.8)
[2021-08-30] MEDS ORDERED: Morphine 4 MG/ML VIAL ONE (11:25)
[2021-08-30 11:46] LABS: ALT (SGPT) 38 U/L (8-55); AST (SGOT) 23 U/L (5-34); Albumin 4.2 g/dL (3.5-5.0); Alkaline Phosphatase 99 U/L (40-110); Anion Gap 13 mmol/L (10-20); BUN (Urea Nitrogen) 13 mg/dL (9.8-20.1); Bilirubin, Total 0.4 mg/dL (0.2-1.2); Calc. Creatinine Clearance 0 mL/min (70-130); Calcium 9.7 mg/dL (7.8-10.44); Carbon Dioxide 27 mmol/L (22-29); Chloride 104 mmol/L (98-107); Glucose 163 mg/dL (70-105); Lipase 23 U/L (8-78); Potassium 3.2 mmol/L (3.5-5.1); Protein, Total 7.2 g/dL (6.0-8.3); Sodium 141 mmol/L (136-145)
== END 2021-08-30 14:33 | disposition home or self-care (01) ==
LOC: ERS 10:59
DX: R10.32 Left lower quadrant pain (principal); B20 Human immunodeficiency virus [HIV] disease; I10 Essential (primary) hypertension; E11.9 Type 2 diabetes mellitus without complications; Z79.899 Other long term (current) drug therapy
CPT/HCPCS: 36415; 71045; 74177; 80053; 83690; 85025; 93005; 96374; J2270; Q9967

== ENCOUNTER 2022-05-13 09:06 | Emergency (ER) | payer BC, MEDICAID ==
[2022-05-13] MEDS ORDERED: Potassium Chloride 20 MEQ TAB ONE (21:49)
[2022-05-13] MEDS ORDERED: Ketorolac Tromethamine 30 MG/ML VIAL ONE (22:03)
== END 2022-05-13 11:06 | disposition left against medical advice (07) ==
LOC: ERS 09:06
DX: Z53.21 Procedure and treatment not carried out due to patient leaving prior to being seen by health care provider (principal)
CPT/HCPCS: J1885

== ENCOUNTER 2022-07-08 16:49 | Emergency (ER) | payer BC, MEDICAID | END 2022-07-08 19:06 | disposition left against medical advice (07) | LOC: ERS 16:49 | DX: Z53.21 Procedure and treatment not carried out due to patient leaving prior to being seen by health care provider (principal) ==

== ENCOUNTER 2022-09-04 08:00 | Inpatient (IN) | payer BC, MEDICAID ==
[2022-09-04] MEDS ORDERED: Acetaminophen 500 MG TAB ONE (09:16)
[2022-09-04] MEDS ORDERED: Aspirin Chewable 81 MG TAB ONE (09:34)
[2022-09-04 09:48] LABS: #Monocytes 0.6 thou/uL (0.11-0.59); #Neutrophils 8.9 thou/uL (1.40-6.50); %Basophils 0.1 % (0.0-1.0); %Eosinophils 0.1 % (0.0-10.0); %Lymphocytes 9.5 % (21.0-51.0); %Monocytes 5.6 % (0.0-10.0); %Neutrophils 84.8 % (42.0-75.0); Hemoglobin 12.3 g/dL (12.0-16.0); Mean Corpuscular HGB CONC 34.1 g/dL (32.0-36.0); Mean Corpuscular Hemoglobin 31.4 pg (27.0-31.0); Mean Corpuscular Volume 92.1 fl (78.0-98.0); Mean Platelet Volume 7.9 fL (7.4-10.4); Platelet Count 185 thou/uL (130-400); RBC Distribution Width 12.9 % (11.5-14.5); Red Blood Cell (RBC) Count 3.92 mill/uL (4.20-5.40); White Blood Cell (WBC) Count 10.5 thou/uL (4.8-10.8)
[2022-09-04] MEDS ORDERED: methylPREDNISolone Sod Succ/PF 125 MG/2 ML VIAL ONE (09:53)
[2022-09-04 10:10] LABS: ALT (SGPT) 39 U/L (8-55); AST (SGOT) 38 U/L (5-34); Albumin 4.4 g/dL (3.5-5.0); Alkaline Phosphatase 96 U/L (40-110); Anion Gap 13 mmol/L (10-20); BUN (Urea Nitrogen) 14 mg/dL (9.8-20.1); Bilirubin, Total 0.5 mg/dL (0.2-1.2); Calc. Creatinine Clearance 0 mL/min (70-130); Calcium 9.8 mg/dL (7.8-10.44); Carbon Dioxide 28 mmol/L (22-29); Chloride 101 mmol/L (98-107); Estimated GFR 50; Globulin 3.3 g/dL (2.4-3.5); Glucose 131 mg/dL (70-105); Protein, Total 7.7 g/dL (6.0-8.3); Sodium 139 mmol/L (136-145)
[2022-09-04] MEDS ORDERED: Albuterol 200 PUFF (6.7GM INHALER) ONE (10:27)
[2022-09-04 10:54] LABS: SARS-CoV-2 NAA Rapid Test Not Detected (NotDetected)
[2022-09-04 10:55] LABS: CKMB 1.7 ng/mL (0-6.6)
[2022-09-04] MEDS ORDERED: Oseltamivir 75 MG CAP PO SCH (11:30)
[2022-09-04] MEDS ORDERED: Potassium Chloride 20 MEQ TAB ONE (12:15)
[2022-09-04 12:52] LABS: Magnesium 2.4 mg/dL (1.6-2.6)
[2022-09-04] MEDS ORDERED: Ondansetron ODT 4 MG TAB PO PRN (13:09)
[2022-09-04] MEDS ORDERED: Ondansetron PF 4 MG/2 ML Vial IVP PRN (13:09)
[2022-09-04] MEDS ORDERED: Benzonatate 100 MG CAP PO PRN (13:16)
[2022-09-04 13:49] LABS: Troponin I 0.032 ng/mL (< 0.028)
[2022-09-04] MEDS ORDERED: Albuterol Sulfate 2.5 mg/3 ml Neb NEB PRN (14:50)
[2022-09-04 16:42] LABS: Troponin I 0.028 ng/mL (< 0.028)
[2022-09-04 17:06] VITALS: BMI 28.3
[2022-09-04] MEDS: methylPREDNISolone Sod Succ 40 MG VIAL IVP SCH (18:17)
[2022-09-04] MEDS: Famotidine 20 MG TAB PO SCH (21:46)
[2022-09-04] MEDS: Oseltamivir 75 MG CAP PO SCH (21:46)
[2022-09-05] MEDS: methylPREDNISolone Sod Succ 40 MG VIAL IVP SCH ×4 (00:42→17:20)
[2022-09-05 04:46] LABS: #Lymphocytes 0.9 thou/uL (1.20-3.40); #Monocytes 0.4 thou/uL (0.11-0.59); %Basophils 0.2 % (0.0-1.0); %Eosinophils 0.2 % (0.0-10.0); %Lymphocytes 7.3 % (21.0-51.0); %Neutrophils 89.2 % (42.0-75.0); Mean Corpuscular HGB CONC 31.7 g/dL (32.0-36.0); Mean Corpuscular Hemoglobin 29.2 pg (27.0-31.0); Mean Corpuscular Volume 92.1 fl (78.0-98.0); Mean Platelet Volume 8.7 fL (7.4-10.4); Platelet Count 191 thou/uL (130-400); RBC Distribution Width 12.9 % (11.5-14.5); Red Blood Cell (RBC) Count 3.77 mill/uL (4.20-5.40); White Blood Cell (WBC) Count 12.3 thou/uL (4.8-10.8)
[2022-09-05 05:19] LABS: Anion Gap 16 mmol/L (10-20); BUN (Urea Nitrogen) 16 mg/dL (9.8-20.1); Calc. Creatinine Clearance 64 mL/min (70-130); Calcium 9.5 mg/dL (7.8-10.44); Carbon Dioxide 21 mmol/L (22-29); Chloride 106 mmol/L (98-107); Estimated GFR 65; Glucose 192 mg/dL (70-105); Potassium 3.3 mmol/L (3.5-5.1); Sodium 140 mmol/L (136-145)
[2022-09-05] MEDS ORDERED: Electrolyte Replacement Protocol 1 EACH FS SCH (05:45)
[2022-09-05] MEDS ORDERED: Potassium Chloride 20 MEQ TAB PO SCH ×2 (06:00→11:45)
[2022-09-05 06:42] LABS: Magnesium 2.5 mg/dL (1.6-2.6)
[2022-09-05] MEDS: Enoxaparin Sodium 40 MG/0.4 ML SYRINGE SC SCH (10:07)
[2022-09-05] MEDS: Oseltamivir 75 MG CAP PO SCH ×2 (10:08→21:49)
[2022-09-05] MEDS: Famotidine 20 MG TAB PO SCH ×2 (10:08→21:49)
[2022-09-05 10:57] LABS: Potassium 3.3 mmol/L (3.5-5.1)
[2022-09-05] MEDS ORDERED: Amlodipine 5 MG TAB PO SCH (12:00)
[2022-09-05] MEDS ORDERED: Budesonide 0.5 MG/2 ML NEB NEB SCH (12:30)
[2022-09-05] MEDS ORDERED: Arformoterol 15 MCG/2 ML NEB NEB SCH (12:30)
[2022-09-05] MEDS: Levalbuterol HCl 0.63 MG/3 ML NEB NEB SCH ×2 (12:42→18:37)
[2022-09-05] MEDS: Ipratropium Bromide 2.5 ml Neb NEB SCH ×2 (12:42→18:38)
[2022-09-05] MEDS: Benzonatate 100 MG CAP PO SCH ×2 (15:05→21:49)
[2022-09-05] MEDS: Acetaminophen 325 MG TAB PO PRN (17:20)
[2022-09-05 18:28] LABS: Potassium 3.7 mmol/L (3.5-5.1)
[2022-09-05] MEDS: Arformoterol 15 MCG/2 ML NEB NEB SCH (18:38)
[2022-09-05] MEDS: Budesonide 0.5 MG/2 ML NEB NEB SCH (18:38)
[2022-09-06] MEDS: methylPREDNISolone Sod Succ 40 MG VIAL IVP SCH ×4 (00:29→17:14)
[2022-09-06] MEDS: Ipratropium Bromide 2.5 ml Neb NEB SCH ×2 (00:35→06:26)
[2022-09-06] MEDS: Levalbuterol HCl 0.63 MG/3 ML NEB NEB SCH ×5 (00:35→22:16)
[2022-09-06] MEDS ORDERED: Nitroglycerin 0.4 MG TAB (25 Tab Bottle) SL PRN (04:03)
[2022-09-06] MEDS: Acetaminophen 325 MG TAB PO PRN (04:17)
[2022-09-06] MEDS ORDERED: Morphine 4 MG/ML VIAL SLOW IVP PRN (04:17)
[2022-09-06 04:29] LABS: #Lymphocytes 0.9 thou/uL (1.20-3.40); #Monocytes 0.5 thou/uL (0.11-0.59); #Neutrophils 8.8 thou/uL (1.40-6.50); %Basophils 0.1 % (0.0-1.0); %Eosinophils 0.1 % (0.0-10.0); %Lymphocytes 8.9 % (21.0-51.0); %Monocytes 4.5 % (0.0-10.0); %Neutrophils 86.3 % (42.0-75.0); Hemoglobin 11.4 g/dL (12.0-16.0); Mean Corpuscular HGB CONC 33.6 g/dL (32.0-36.0); Mean Corpuscular Hemoglobin 31.1 pg (27.0-31.0); Mean Corpuscular Volume 92.6 fl (78.0-98.0); Platelet Count 214 thou/uL (130-400); RBC Distribution Width 13.1 % (11.5-14.5); Red Blood Cell (RBC) Count 3.67 mill/uL (4.20-5.40); White Blood Cell (WBC) Count 10.1 thou/uL (4.8-10.8)
[2022-09-06] MEDS ORDERED: Levalbuterol HCl 0.63 MG/3 ML NEB NEB SCH (04:30)
[2022-09-06] MEDS ORDERED: Magnesium 2 GM/50 ML(in water) 2 GM in Premix Bag 1 BAG IVPB SCH (04:45)
[2022-09-06 04:46] LABS: Anion Gap 14 mmol/L (10-20); BUN (Urea Nitrogen) 12 mg/dL (9.8-20.1); Calc. Creatinine Clearance 63 mL/min (70-130); Calcium 9.1 mg/dL (7.8-10.44); Carbon Dioxide 22 mmol/L (22-29); Chloride 106 mmol/L (98-107); Estimated GFR 65; Glucose 214 mg/dL (70-105); Magnesium 2.3 mg/dL (1.6-2.6); Potassium 3.4 mmol/L (3.5-5.1); Sodium 139 mmol/L (136-145)
[2022-09-06 04:49] LABS: Phosphorus 1.7 mg/dL (2.3-4.7)
[2022-09-06 04:50] LABS: Troponin I 0.016 ng/mL (< 0.028)
[2022-09-06] MEDS ORDERED: Nitroglycerin 2% Ointment 1 INCH/1 GM Packet TOP SCH (06:00)
[2022-09-06] MEDS: Arformoterol 15 MCG/2 ML NEB NEB SCH (06:36)
[2022-09-06] MEDS: Budesonide 0.5 MG/2 ML NEB NEB SCH ×2 (06:36→19:06)
[2022-09-06] MEDS ORDERED: Potassium Chloride 20 MEQ TAB PO SCH (08:00)
[2022-09-06] MEDS: Amlodipine 5 MG TAB PO SCH (08:51)
[2022-09-06] MEDS: Rosuvastatin 20 MG TAB PO SCH (08:51)
[2022-09-06] MEDS: Benzonatate 100 MG CAP PO SCH ×3 (08:51→20:16)
[2022-09-06] MEDS: Oseltamivir 75 MG CAP PO SCH ×2 (08:51→20:16)
[2022-09-06] MEDS: Enoxaparin Sodium 40 MG/0.4 ML SYRINGE SC SCH (08:51)
[2022-09-06] MEDS: Famotidine 20 MG TAB PO SCH ×2 (08:51→20:16)
[2022-09-06] MEDS: PHOS-NAK 1 PKT PACK PO SCH ×2 (08:51→11:20)
[2022-09-06] MEDS ORDERED: Non-Formulary Item 1 EACH (Darunavir/Cobicistat [Prezcobix 800 Mg-150 Mg Tablet] 1 EACH T PO SCH (09:00)
[2022-09-06] MEDS ORDERED: Furosemide 20 MG/2 ML VIAL SLOW IVP SCH (12:45)
[2022-09-06] MEDS: Acetaminophen/Codeine 30-300mg Tablet PO SCH ×2 (13:20→20:16)
[2022-09-06] MEDS: Calcium Acetate 667 MG CAP PO SCH (17:14)
[2022-09-06] MEDS: cefTRIAXone\\ROCEPHIN 1 GM in Sodium Chloride 0.9% 100 ML IVPB SCH (17:14)
[2022-09-06] MEDS: Vancomycin 1 GM in Premix Bag 1 BAG IVPB SCH (17:45)
[2022-09-06 18:31] LABS: Legionella Urinary Ag Negative (Negative); Strep pneumo Urine Ag NEGATIVE (NEGATIVE)
[2022-09-07] MEDS: methylPREDNISolone Sod Succ 40 MG VIAL IVP SCH ×4 (01:05→17:41)
[2022-09-07] MEDS: Acetaminophen/Codeine 30-300mg Tablet PO SCH ×4 (01:05→19:49)
[2022-09-07] MEDS: Levalbuterol HCl 0.63 MG/3 ML NEB NEB SCH ×6 (02:34→22:34)
[2022-09-07 05:21] LABS: Anion Gap 14 mmol/L (10-20); BUN (Urea Nitrogen) 18 mg/dL (9.8-20.1); Calc. Creatinine Clearance 68 mL/min (70-130); Calcium 9.1 mg/dL (7.8-10.44); Carbon Dioxide 22 mmol/L (22-29); Chloride 102 mmol/L (98-107); Estimated GFR 70; Glucose 197 mg/dL (70-105); Magnesium 2.8 mg/dL (1.6-2.6); Potassium 3.7 mmol/L (3.5-5.1); Sodium 134 mmol/L (136-145)
[2022-09-07 07:29] LABS: Hemoglobin 10.8 g/dL (12.0-16.0); Mean Corpuscular HGB CONC 33.6 g/dL (32.0-36.0); Mean Corpuscular Hemoglobin 31.1 pg (27.0-31.0); Mean Corpuscular Volume 92.6 fl (78.0-98.0); Mean Platelet Volume 8.1 fL (7.4-10.4); Platelet Count 211 thou/uL (130-400); RBC Distribution Width 13.1 % (11.5-14.5); Red Blood Cell (RBC) Count 3.47 mill/uL (4.20-5.40); White Blood Cell (WBC) Count 10.5 thou/uL (4.8-10.8)
[2022-09-07] MEDS: Budesonide 0.5 MG/2 ML NEB NEB SCH ×2 (07:31→18:50)
[2022-09-07 08:36] LABS: Band 3 % (5-11); Lymphocytes 14 % (21-51); MDiff Complete? YES; Monocytes 3 % (0-10); Neutrophil 79 % (42-75); Platelet Morphology Comment Appears Adequate; RBC Morphology Normal; Reactive Lymphocytes 1 % (0-10)
[2022-09-07] MEDS: Amlodipine 5 MG TAB PO SCH (08:44)
[2022-09-07] MEDS: Famotidine 20 MG TAB PO SCH ×2 (08:44→19:50)
[2022-09-07] MEDS: Calcium Acetate 667 MG CAP PO SCH ×3 (08:44→16:44)
[2022-09-07] MEDS: Oseltamivir 75 MG CAP PO SCH ×2 (08:44→19:51)
[2022-09-07] MEDS: Benzonatate 100 MG CAP PO SCH ×3 (08:44→19:50)
[2022-09-07] MEDS: Enoxaparin Sodium 40 MG/0.4 ML SYRINGE SC SCH (08:44)
[2022-09-07] MEDS: Rosuvastatin 20 MG TAB PO SCH (08:45)
[2022-09-07 15:14] LABS: %CD4 (Helper/Inducer) 36.4 % (30.8-58.5); Absolute CD4 328 /uL (359-1519); Lymphocytes/Gated Cell Count 0.9 x10E3/uL (0.7-3.1); Total Lymphocyte 9 % (Not Estab.); WBC Total Count 9.7 x10E3/uL (3.4-10.8)
[2022-09-07] MEDS: cefTRIAXone\\ROCEPHIN 1 GM in Sodium Chloride 0.9% 100 ML IVPB SCH (16:44)
[2022-09-07] MEDS: Vancomycin 1 GM in Premix Bag 1 BAG IVPB SCH (17:41)
[2022-09-08] MEDS: methylPREDNISolone Sod Succ 40 MG VIAL IVP SCH ×4 (00:04→20:38)
[2022-09-08] MEDS: Acetaminophen/Codeine 30-300mg Tablet PO SCH ×3 (00:04→14:58)
[2022-09-08] MEDS: Levalbuterol HCl 0.63 MG/3 ML NEB NEB SCH ×6 (02:17→23:08)
[2022-09-08 05:37] LABS: Anion Gap 12 mmol/L (10-20); BUN (Urea Nitrogen) 24 mg/dL (9.8-20.1); Calc. Creatinine Clearance 65 mL/min (70-130); Carbon Dioxide 24 mmol/L (22-29); Chloride 105 mmol/L (98-107); Estimated GFR 67; Glucose 194 mg/dL (70-105); Potassium 4.4 mmol/L (3.5-5.1); Sodium 137 mmol/L (136-145)
[2022-09-08 05:38] LABS: Band 12 % (5-11); Hemoglobin 10.6 g/dL (12.0-16.0); Hypochromia SLIGHT = 6-15 cells (100X) (0-5/hpf); Lymphocytes 19 % (21-51); MDiff Complete? YES; Mean Corpuscular HGB CONC 33.8 g/dL (32.0-36.0); Mean Corpuscular Hemoglobin 31.3 pg (27.0-31.0); Mean Corpuscular Volume 92.8 fl (78.0-98.0); Mean Platelet Volume 8.2 fL (7.4-10.4); Metamyelocyte 1 % (0-0); Monocytes 4 % (0-10); Neutrophil 64 % (42-75); Platelet Count 220 thou/uL (130-400); Platelet Morphology Comment Appears Adequate; Red Blood Cell (RBC) Count 3.38 mill/uL (4.20-5.40); White Blood Cell (WBC) Count 12.8 thou/uL (4.8-10.8)
[2022-09-08] MEDS: Budesonide 0.5 MG/2 ML NEB NEB SCH ×2 (06:31→18:38)
[2022-09-08] MEDS: Oseltamivir 75 MG CAP PO SCH ×2 (08:51→20:38)
[2022-09-08] MEDS: Enoxaparin Sodium 40 MG/0.4 ML SYRINGE SC SCH (08:51)
[2022-09-08] MEDS: Amlodipine 5 MG TAB PO SCH (08:51)
[2022-09-08] MEDS: Famotidine 20 MG TAB PO SCH ×2 (08:51→20:38)
[2022-09-08] MEDS: Calcium Acetate 667 MG CAP PO SCH ×3 (08:51→16:49)
[2022-09-08] MEDS: Rosuvastatin 20 MG TAB PO SCH (08:51)
[2022-09-08] MEDS: Benzonatate 100 MG CAP PO SCH ×3 (08:51→20:38)
[2022-09-08 10:12] LABS: Phosphorus 3.9 mg/dL (2.3-4.7)
[2022-09-08] MEDS: cefTRIAXone\\ROCEPHIN 1 GM in Sodium Chloride 0.9% 100 ML IVPB SCH (16:49)
[2022-09-08] MEDS: Vancomycin 1 GM in Premix Bag 1 BAG IVPB SCH (17:38)
[2022-09-08 17:54] LABS: Vancomycin, Trough 2.3 ug/mL
[2022-09-08] MEDS: Acetaminophen/Codeine 30-300mg Tablet PO PRN (23:05)
[2022-09-09] MEDS: Levalbuterol HCl 0.63 MG/3 ML NEB NEB SCH ×6 (01:31→22:40)
[2022-09-09] MEDS: Vancomycin 1 GM in Premix Bag 1 BAG IVPB SCH ×2 (06:02→17:05)
[2022-09-09 06:51] LABS: Hemoglobin 10.5 g/dL (12.0-16.0); Mean Corpuscular HGB CONC 32.5 g/dL (32.0-36.0); Mean Corpuscular Hemoglobin 30.1 pg (27.0-31.0); Mean Corpuscular Volume 92.5 fl (78.0-98.0); Mean Platelet Volume 8.3 fL (7.4-10.4); Platelet Count 272 thou/uL (130-400); Red Blood Cell (RBC) Count 3.49 mill/uL (4.20-5.40); White Blood Cell (WBC) Count 18.4 thou/uL (4.8-10.8)
[2022-09-09 06:58] LABS: Anion Gap 12 mmol/L (10-20); BUN (Urea Nitrogen) 20 mg/dL (9.8-20.1); Calc. Creatinine Clearance 80 mL/min (70-130); Carbon Dioxide 26 mmol/L (22-29); Chloride 107 mmol/L (98-107); Estimated GFR 73; Glucose 215 mg/dL (70-105); Sodium 141 mmol/L (136-145)
[2022-09-09] MEDS: Budesonide 0.5 MG/2 ML NEB NEB SCH ×2 (07:07→18:25)
[2022-09-09 07:49] LABS: Band 4 % (5-11); Hypersemented Neutrophil SLIGHT; Lymphocytes 21 % (21-51); MDiff Complete? YES; Metamyelocyte 2 % (0-0); Monocytes 9 % (0-10); Myelocyte 1 % (0-0); Neutrophil 63 % (42-75); Platelet Morphology Comment Appears Adequate; Polychromasia SLIGHT = 2-3 cells (100X) (0-2/hpf)
[2022-09-09] MEDS: Enoxaparin Sodium 40 MG/0.4 ML SYRINGE SC SCH (08:04)
[2022-09-09] MEDS: methylPREDNISolone Sod Succ 40 MG VIAL IVP SCH ×2 (08:04→20:25)
[2022-09-09] MEDS: Amlodipine 5 MG TAB PO SCH (08:05)
[2022-09-09] MEDS: Calcium Acetate 667 MG CAP PO SCH ×3 (08:05→17:05)
[2022-09-09] MEDS: Benzonatate 100 MG CAP PO SCH ×3 (08:05→20:25)
[2022-09-09] MEDS: Rosuvastatin 20 MG TAB PO SCH (08:06)
[2022-09-09] MEDS: Oseltamivir 75 MG CAP PO SCH (08:06)
[2022-09-09] MEDS: Famotidine 20 MG TAB PO SCH ×2 (08:07→20:25)
[2022-09-09] MEDS: Prezcobix 800 Mg-150 Mg Tablet PO SCH (08:07)
[2022-09-09] MEDS: guaiFENesin 200 MG TAB PO PRN ×2 (13:16→20:25)
[2022-09-09] MEDS: cefTRIAXone\\ROCEPHIN 1 GM in Sodium Chloride 0.9% 100 ML IVPB SCH (15:57)
[2022-09-10] MEDS: guaiFENesin 200 MG TAB PO PRN (00:32)
[2022-09-10] MEDS: Levalbuterol HCl 0.63 MG/3 ML NEB NEB SCH ×6 (00:34→23:28)
[2022-09-10] MEDS: Vancomycin 1 GM in Premix Bag 1 BAG IVPB SCH ×3 (05:00→18:03)
[2022-09-10 06:39] LABS: Band 10 % (5-11); Lymphocytes 16 % (21-51); MDiff Complete? YES; Mean Corpuscular HGB CONC 33.4 g/dL (32.0-36.0); Mean Corpuscular Hemoglobin 31.2 pg (27.0-31.0); Mean Corpuscular Volume 93.2 fl (78.0-98.0); Mean Platelet Volume 7.7 fL (7.4-10.4); Metamyelocyte 3 % (0-0); Monocytes 5 % (0-10); Myelocyte 5 % (0-0); Neutrophil 61 % (42-75); Platelet Count 296 thou/uL (130-400); RBC Distribution Width 12.9 % (11.5-14.5); Red Blood Cell (RBC) Count 3.53 mill/uL (4.20-5.40); White Blood Cell (WBC) Count 19.7 thou/uL (4.8-10.8)
[2022-09-10 06:43] LABS: Vancomycin, Trough 26.5 ug/mL
[2022-09-10 06:52] LABS: Anion Gap 12 mmol/L (10-20); BUN (Urea Nitrogen) 19 mg/dL (9.8-20.1); Calc. Creatinine Clearance 81 mL/min (70-130); Calcium 9.3 mg/dL (7.8-10.44); Carbon Dioxide 24 mmol/L (22-29); Chloride 105 mmol/L (98-107); Estimated GFR 75; Glucose 217 mg/dL (70-105); Potassium 4.2 mmol/L (3.5-5.1); Sodium 137 mmol/L (136-145)
[2022-09-10] MEDS: Budesonide 0.5 MG/2 ML NEB NEB SCH ×2 (07:19→18:40)
[2022-09-10] MEDS: Rosuvastatin 20 MG TAB PO SCH (08:33)
[2022-09-10] MEDS: Cefdinir 300 MG CAP PO SCH ×2 (08:33→20:30)
[2022-09-10] MEDS: Acetaminophen/Codeine 30-300mg Tablet PO PRN (08:33)
[2022-09-10] MEDS: Enoxaparin Sodium 40 MG/0.4 ML SYRINGE SC SCH (08:34)
[2022-09-10] MEDS: Benzonatate 100 MG CAP PO SCH ×3 (08:34→20:30)
[2022-09-10] MEDS: Amlodipine 5 MG TAB PO SCH (08:34)
[2022-09-10] MEDS: Famotidine 20 MG TAB PO SCH ×2 (08:34→20:30)
[2022-09-10] MEDS: Calcium Acetate 667 MG CAP PO SCH ×3 (08:34→15:25)
[2022-09-10] MEDS: Prezcobix 800 Mg-150 Mg Tablet PO SCH (08:35)
[2022-09-10 17:17] LABS: Vancomycin, Random 4.8 ug/mL (See Comment)
[2022-09-10] MEDS ORDERED: Vancomycin HCl 750 MG in Sodium Chloride 0.9% 250 ML 250 ML IVPB SCH (18:00)
[2022-09-10 19:12] LABS: HIV-1 Quantitative, RNA PCR <20 copies/mL (.)
[2022-09-11] MEDS: Levalbuterol HCl 0.63 MG/3 ML NEB NEB SCH ×3 (03:58→10:52)
[2022-09-11] MEDS: Vancomycin 1 GM in Premix Bag 1 BAG IVPB SCH (05:55)
[2022-09-11 07:10] LABS: Anion Gap 11 mmol/L (10-20); BUN (Urea Nitrogen) 16 mg/dL (9.8-20.1); Calc. Creatinine Clearance 83 mL/min (70-130); Carbon Dioxide 26 mmol/L (22-29); Chloride 105 mmol/L (98-107); Estimated GFR 77; Glucose 144 mg/dL (70-105); Potassium 3.5 mmol/L (3.5-5.1); Sodium 138 mmol/L (136-145)
[2022-09-11] MEDS: Budesonide 0.5 MG/2 ML NEB NEB SCH (07:17)
[2022-09-11] MEDS ORDERED: Potassium Chloride 20 MEQ TAB PO SCH (08:00)
[2022-09-11 08:02] LABS: Band 6 % (5-11); Lymphocytes 33 % (21-51); MDiff Complete? YES; Mean Corpuscular HGB CONC 33.1 g/dL (32.0-36.0); Mean Corpuscular Hemoglobin 30.8 pg (27.0-31.0); Mean Corpuscular Volume 93.1 fl (78.0-98.0); Mean Platelet Volume 7.4 fL (7.4-10.4); Metamyelocyte 2 % (0-0); Monocytes 7 % (0-10); Myelocyte 1 % (0-0); Neutrophil 48 % (42-75); Platelet Count 332 thou/uL (130-400); Platelet Morphology Comment Appears Adequate; Polychromasia SLIGHT = 2-3 cells (100X) (0-2/hpf); Reactive Lymphocytes 3 % (0-10); Red Blood Cell (RBC) Count 3.88 mill/uL (4.20-5.40)
[2022-09-11] MEDS: Cefdinir 300 MG CAP PO SCH (08:27)
[2022-09-11] MEDS: Amlodipine 5 MG TAB PO SCH (08:27)
[2022-09-11] MEDS: Famotidine 20 MG TAB PO SCH (08:27)
[2022-09-11] MEDS: Calcium Acetate 667 MG CAP PO SCH ×2 (08:27→12:11)
[2022-09-11] MEDS: Rosuvastatin 20 MG TAB PO SCH (08:27)
[2022-09-11] MEDS: Prezcobix 800 Mg-150 Mg Tablet PO SCH (08:28)
[2022-09-11] MEDS: Enoxaparin Sodium 40 MG/0.4 ML SYRINGE SC SCH (08:28)
[2022-09-11] MEDS: Benzonatate 100 MG CAP PO SCH (08:35)
[2022-09-11 08:57] VITALS: BP 155/81; TEMP 97.9
== END 2022-09-11 12:36 | disposition home or self-care (01) | DRG 202 ==
LOC: ERS 08:00 → 2NO 12:38 → T4-A 09-08 22:17
PROVIDERS: ADMIT Internal Medicine; ATTEND Internal Medicine
DX: J45.901 Unspecified asthma with (acute) exacerbation (principal); J10.00 Influenza due to other identified influenza virus with unspecified type of pneumonia; Z20.822 Contact with and (suspected) exposure to COVID-19; I10 Essential (primary) hypertension; E78.5 Hyperlipidemia, unspecified; J45.909 Unspecified asthma, uncomplicated; R77.8 Other specified abnormalities of plasma proteins; Z21 Asymptomatic human immunodeficiency virus [HIV] infection status; R19.7 Diarrhea, unspecified; R06.89 Other abnormalities of breathing; Z90.710 Acquired absence of both cervix and uterus; Z98.890 Other specified postprocedural states; Z79.899 Other long term (current) drug therapy; Z79.82 Long term (current) use of aspirin
CPT/HCPCS: 36415; 36416; 71045; 71046; 80048; 80053; 80202; 82553; 83605; 83735; 83880; 84100; 84484; 85025; 86361; 87040; 87070; 87205; 87449; 87536; 87811; 87899; 93005; 93010; 93306; 94640; 96374; J0696; J1650; J1940; J2920; J2930; J3370; J3475; J3490; J7614; J7620; J7626

== ENCOUNTER 2023-05-31 13:29 | Outpatient (CLI) | payer BC, MEDICAID | END 2023-05-31 13:30 | disposition home or self-care (01) | LOC: BICMAMMO 13:29 | PROVIDERS: ATTEND Family Medicine | DX: Z12.31 Encounter for screening mammogram for malignant neoplasm of breast (principal); Z80.3 Family history of malignant neoplasm of breast | CPT/HCPCS: 77063; 77067 ==

== ENCOUNTER 2023-06-03 17:36 | Emergency (ER) | payer BC ==
[2023-06-03 20:07] LABS: #Eosinphils 0.2 thou/uL (0.0-0.7); #Monocytes 0.8 thou/uL (0.11-0.59); #Neutrophils 4.5 thou/uL (1.40-6.50); %Basophils 0.4 % (0.0-1.0); %Eosinophils 1.6 % (0.0-10.0); %Lymphocytes 40.4 % (21.0-51.0); %Monocytes 8.3 % (0.0-10.0); %Neutrophils 49.1 % (42.0-75.0); Hemoglobin 11.2 g/dL (12.0-16.0); Mean Corpuscular HGB CONC 33.9 g/dL (32.0-36.0); Mean Corpuscular Hemoglobin 30.5 pg (27.0-31.0); Mean Corpuscular Volume 89.9 fl (78.0-98.0); Mean Platelet Volume 9.9 fL (7.4-10.4); Platelet Count 231 10x3/uL (130-400); RBC Distribution Width 14.8 % (11.5-14.5); Red Blood Cell (RBC) Count 3.67 mill/uL (4.20-5.40); White Blood Cell (WBC) Count 9.2 10x3/uL (4.8-10.8)
[2023-06-03 20:32] LABS: ALT (SGPT) 25 U/L (8-55); AST (SGOT) 20 U/L (5-34); Albumin 4.4 g/dL (3.5-5.0); Alkaline Phosphatase 88 U/L (40-110); Anion Gap 12 mmol/L (10-20); BUN (Urea Nitrogen) 16 mg/dL (9.8-20.1); Bilirubin, Total 0.2 mg/dL (0.2-1.2); Calc. Creatinine Clearance 0 mL/min (70-130); Carbon Dioxide 28 mmol/L (22-29); Chloride 108 mmol/L (98-107); Estimated GFR 45; Globulin 2.9 g/dL (2.4-3.5); Glucose 85 mg/dL (70-105); Protein, Total 7.3 g/dL (6.0-8.3); Sodium 145 mmol/L (136-145)
[2023-06-03] MEDS ORDERED: Ketorolac Tromethamine 30 MG/ML VIAL ONE (20:42)
[2023-06-03 21:40] LABS: Bacteria/HPF None Seen HPF (None Seen); Bilirubin Negative (Negative); Blood, Urine Negative (Negative); CAUTI Indications for Culture Pelvic or flank pain; Clarity Clear (Clear); Glucose, Urine (Dipstick) Normal (Negative); Ketone, Urine Negative (Negative); Leukocyte Negative Leu/uL (Negative); Nitrite Negative (Negative); Protein, Urine (Dipstick) 10 mg/dL (Neg-Trace); RBC/HPF 0-3 HPF (0-3); Specific Gravity, Urine 1.021 (1.002-1.036); Squamous Epithelial 0-3 HPF (0-3); Urobilinogen Normal mg/dL (Less than 2); WBC/HPF 0-3 HPF (0-3); pH, Urine 5.5 (5.0-9.0)
[2023-06-03] MEDS ORDERED: Potassium Chloride 20 MEQ TAB ONE (21:45)
[2023-06-03 21:46] LABS: Urine Culture Reflex No No
== END 2023-06-03 22:14 | disposition home or self-care (01) ==
LOC: ERS 17:36
DX: R51.9 Headache, unspecified (principal); E11.9 Type 2 diabetes mellitus without complications; E78.5 Hyperlipidemia, unspecified; I10 Essential (primary) hypertension; J44.9 Chronic obstructive pulmonary disease, unspecified; B20 Human immunodeficiency virus [HIV] disease; Z79.899 Other long term (current) drug therapy
CPT/HCPCS: 36415; 70450; 80053; 81001; 85025; 96374; J1885